=== PATIENT | female | born 1935 | race Caucasian/White ===

== ENCOUNTER 2016-12-13 10:50 | Inpatient (IN) ==
[2016-12-13 11:19] LABS: Basophils # 0.1 10*3/uL (0.0-0.2); Basophils % 0.6 % (0.0-0.8); Hematocrit 30.2 VOL% (35.7-47.0); Hemoglobin 10.2 GM/DL (12.0-16.0); Immature Granulocytes % 1.2 %; Lymphocytes # 3.9 10*3/uL (1.4-4.0); Lymphocytes % 46.4 % (21.3-54.2); Mean Corpuscular HGB Conc 33.8 GM/DL (32-36); Mean Corpuscular Hemoglobin 31 PG (27-34); Mean Corpuscular Volume 92.6 FL (87-102); Mean Platelet Volume 10.9 FL (9.6-12.0); Monocytes # 0.4 10*3/uL (0.11-0.8); Monocytes % 4.9 % (1.7-12.7); Neutrophils % 46.9 % (38.7-73.9); Platelet Count 162 T/CUMM (130-400); Red Blood Count 3.26 MC/CUMM (3.8-5.5); Red Cell Distribution Width 17.5 % (9.3-17.3); White Blood Count 8.5 T/CUMM (4-12)
--- NOTE | 2016-12-13 11:20 | Emergency Department Note ---
Candice Beth Mantricia, am scribing for, and in the presence of, Dimas Devi MD 11:12. hSandra Beth James D, MD, personally performed the services described in this documentation, ascribed by Kaiser Harvey in my presence, and it is both accurate and complete . Arrival - Arrival Chief Complaint: Allergic Reaction ED Nursing Triage Note: Brought in per EMS from [facility] with possible allergic reaction while receiving Chemo treatment. Per nursing staff patient lost pulse, requiring CPR and epi--Upon EMS arrival patient with palpable pulse. Awake with slurred speech at present, attempting to answer questions. c/o mid-sternal chest pain. Mode of Arrival: Stretcher Source: EMS, RN Notes Reviewed Time Seen by Provider: 12/13/16 10:58 - History of Present Illness HPI Narrative: Pt is an 81 y/o white female arriving to ED from [facility] for evaluation of possible allergic reaction that happened an hour [employer]. Pt is very lethargic during consultation and responds minimally. She was receiving chemo at [facility] due to her left-sided breast cancer. Dr. Hinton states that pt was given her 2nd dose of Taxotere and staff told him that she showed signs of allergic reaction; however, he did not witness any of this. EMS states that pt initially had no pulse but now has a palpable pulse. She also c/o midsternal chest pain. Pt was gagging when EMS arrived and found that she was gagging on a piece of gum. No other complaints were reported to ED. Onset (ago): hour(s) Date of Last Menstrual Period: PM Allergies/Adverse Reactions: Allergies Allergy/AdvReac Type Severity Reaction Status Date / Time No Known Allergies Allergy Verified 12/13/16 11:08 Review of System - Review of System 12 point system: reviewed and no additional remarkable complaints except as stated - Review of System Constitutional: Absent: chills, diaphoresis, fever Eyes: Absent: discharge, pain Head/Ears/Nose/Throat: Absent: earache, epistaxis Respiratory: Absent: cough, respiratory distress, wheezing Cardiovascular: Present: chest pain, dyspnea on exertion. Absent: palpitations Gastrointestinal: Absent: abdominal pain, nausea, vomiting, diarrhea Genitourinary female: Absent: abnormal menses, dysuria Exam Vital Signs: Vital Signs Temperature 97.7 F 12/13/16 10:50 Pulse Rate 109 H 12/13/16 10:50 Respiratory Rate 24 12/13/16 10:50 Blood Pressure 142/107 12/13/16 10:50 O2 Sat by Pulse Oximetry 98 12/13/16 10:50 GENERAL: This is a chronically and acutely ill-appearing white female, pale and somewhat lethargic. VITAL SIGNS: Reviewed HEENT: Head is atraumatic and normocephalic. Pupils are equal round react to light. Extraocular movements are intact. Oropharynx is benign with moist mucous membranes. NECK: Neck is soft and supple without tenderness. There are no masses. There is no lymphadenopathy. LUNGS: Lungs are clear to auscultation. Chest rises symmetrically. There is no chest wall tenderness. CV: Heart is regular rate and rhythm without murmurs rubs or gallops. ABDOMEN: Abdomen is soft, nontender to palpation. There are no abdominal abnormal masses palpated. There is no organomegaly. Bowel sounds are present and active. SKIN: Skin is warm and dry. No rash. EXTREMITIES: Patient has full range of motion without tenderness. There is no pedal edema. NEUROLOGIC: Arousable, follows commands. Cranial nerves II through XII are intact. Motor is 3 over 5 in all extremities bilaterally. Course - Reevaluation(s) Reevaluation #1: Patient is markedly improved at this time. She is much more awake, alert and talkative. Patient is oriented 4. Time: 11:46 Results - Labs CBC & BMP: 12/13/16 11:06 Lab Results: I have reviewed the patients labs - EKG EKG results: interpreted by ERMD - Impressions EKG: Normal sinus rhythm with a rate of 94, occasional supraventricular premature complexes, incomplete right bundle branch block, nonspecific ST-T wave changes. - Diagnostic Findings Procedure: Chest x-ray: image reviewed by me (Minimal increased pulmonary markings bilaterally, Mediport present with tip in the superior vena cava.), CT : image reviewed by me (CT head: No acute intracranial lesion or hemorrhage.) Disposition Clinical Impression: Allergic reaction to Taxotere, Metastatic breast cancer Case discussed with: patient, patient's family Disposition: Still a Patient Condition: Guarded
[2016-12-13 11:28] LABS: Apearance,Urine CLOUDY (Clear); Bacteria,Urine Moderate /HPF (Few); Bilirubin,Urine Negative (Negative); Blood, Urine Negative (Negative); Glucose,Urine (UA) Negative (Negative); Ketones,Urine Negative (Negative); Mucus,Urine Many /LPF (Occasional); Nitrite,Urine Negative (Negative); Protein,Urine 100 MG/DL; RBC,Urine 7 /HPF (0-4); Squamous Epithelial Cell,Urine Occasional /HPF (0-10); Urine Color Yellow (Yellow); Urine Specific Gravity 1.014 (1.001-1.035); WBC,Urine 842 /HPF (0-6)
--- NOTE | 2016-12-13 11:28 | XRay Report ---
XR chest 1V portable Indication: Altered mental status Comparison: None Technique: Single frontal view of the chest. Findings: Moderate cardiomegaly. Port catheter tip projects over distal SVC. Prominence of bilateral interstitial lung markings is nonspecific but suspicious for interstitial pulmonary edema. Scattered small pulmonary opacities are also suspicious for pulmonary edema. Underlying infection not excluded. Suspect small layering bilateral pleural fluid. Small subcentimeter nodular densities noted within the upper lungs bilaterally. Consider CT chest for further evaluation. Diffuse osteopenia. Left axillary clips. IMPRESSION: As above. PROCEDURE INTERPRETED AT [facility] DEPARTMENT OF RADIOLOGY Final Report Signed by: Dr Monico Rushing
[2016-12-13 11:30] LABS: INR 1.1; PT Patient Result 11.7 SECS; Partial Thromboplastin Time 25.8 SECS (0-40)
--- NOTE | 2016-12-13 11:39 | CT Report ---
Referring physician: Dimas Devi Exam: CT brain without contrast Date: December 13, 2016 Comparison: None Reason: Mental status changes The patient is an Emergency Department patient on December 13, 2016. Technique: Axial images of the head were obtained without the use of contrast. Total DLP was 1012.1 mGy*cm. Findings: There is mild generalized cerebral and cerebellar atrophy/volume loss. No hydrocephalus or midline shift is present. There is no evidence of recent intracranial hemorrhage, abnormal mass effect or an acute infarction. No acute osseous process is seen. The visualized paranasal sinuses and left mastoid air cells are clear. There is mild fluid within the right mastoid air cells. Impression: 1. No acute intracranial process is identified. 2. Mild fluid within the right mastoid air cells. The CT exam was performed using one or more of the following dose reduction techniques: Automated exposure control and adjustment of the mA and/or kV according to patient size. PROCEDURE INTERPRETED AT [facility] DEPARTMENT OF RADIOLOGY Final Report Signed by: Dr. Reynaldo Shukla
[2016-12-13 11:55] LABS: Albumin 3.5 G/DL (3.4-5.0); Bilirubin,Total 0.8 MG/DL (0.2-1.0); Calcium 8.7 MG/DL (8.5-10.1); Osmolality,Calculated 283.5 MOS/KG (273-304); Potassium 3.3 MMOL/L (3.5-5.1); Total Protein 6.3 G/DL (6.4-8.3); Troponin I Only 0.161 NG/ML (0.00-0.045)
[2016-12-13] MEDS ORDERED: chlorproMAZINE INJ 50 MG in SODIUM CHLORIDE 0.9% 100 ML IV PRN (14:26)
[2016-12-13] MEDS ORDERED: BENZTROPINE 2 MG/2 ML AMP IV PRN (14:26)
[2016-12-13] MEDS ORDERED: ALPRAZolam 0.25 MG TABLET PO PRN (14:26)
[2016-12-13] MEDS ORDERED: chlorproMAZINE INJ 25 MG in SODIUM CHLORIDE 0.9% 100 ML IV PRN (14:26)
[2016-12-13] MEDS ORDERED: diphenhydrAMINE CAP 25 MG CAPSULE PO PRN (14:26)
[2016-12-13] MEDS ORDERED: TEMAZEPAM 7.5 MG CAPSULE PO PRN (14:26)
[2016-12-13] MEDS ORDERED: ACETAMINOPHEN 325 MG TABLET PO PRN (14:26)
[2016-12-13] MEDS ORDERED: MYLANTA/LIDO VISC 2:1 300 ML BOTTLE SWISH/SWAL PRN (14:26)
[2016-12-13] MEDS ORDERED: ONDANSETRON 4 MG/2 ML VIAL IV PRN (14:26)
[2016-12-13] MEDS ORDERED: ALUMINUM/MAGNES/SIMETH MAX STR 30 ML UDCUP PO PRN (14:26)
[2016-12-13] MEDS ORDERED: MAGNESIUM HYDROXIDE SUSP 30 ML UDCUP PO PRN (14:26)
[2016-12-13] MEDS ORDERED: MYLANTA/LIDO VISC 2:1 300 ML BOTTLE SWISH/SPIT PRN (14:26)
[2016-12-13] MEDS ORDERED: traMADol 50 MG TABLET PO PRN (14:26)
[2016-12-13] MEDS ORDERED: guaiFENesin 200 MG/10 ML UDCUP PO PRN (14:26)
[2016-12-13] MEDS ORDERED: LACTULOSE 20 GM/30 ML UDCUP PO PRN (14:26)
[2016-12-13] MEDS ORDERED: chlorproMAZINE 25 MG TABLET PO PRN (14:26)
[2016-12-13] MEDS ORDERED: LOPERAMIDE 2 MG CAPSULE PO PRN ×2 (14:26)
[2016-12-13] MEDS ORDERED: PROMETHAZINE INJ 25 MG in SODIUM CHLORIDE 0.9% 50 ML IV PRN (14:26)
--- NOTE | 2016-12-14 04:44 | EKG Report ---
Stationary ECG Study [facility] ER Test Date: 12/13/2016 10:57:34 AM Pat Name: INDERJIT URBINA Department: Room: Gender: F Operations Manager: : 1935 Requested by: Dimas Hayes Order Number: [id number] Reading MD: TEETEE GARCIA Intervals [place] Rate: 94 P: 67 MT: 199 QRS: -14 QRSD: 103 T: 81 QT: 392 QTc: 444 Interpretive Statements SINUS RHYTHM WITH OCCASIONAL SUPRAVENTRICULAR PREMATURE COMPLEXES INCOMPLETE RIGHT BUNDLE BRANCH BLOCK Electronically Signed On 12-13-16 17:10:45 CDT by TEETEE GARCIA [email or web address]
--- NOTE | 2016-12-14 08:41 | Oncology History&Physical ---
Assessment and Plan (1) Metastatic breast cancer Status: Acute Assessment and plan: The patient will be discharged today. She will return to the office on Sunday for alternative chemotherapy. She appears to have urinary tract infection with culture results pending. She is prescribed Cipro 250 mg p.o. twice daily for 10 days. We are also supplementing potassium. A stat magnesium is pending at this time. Current Visit: Yes History of Present Illness Chief complaint: Anaphylactic reaction History of present illness: Ms. Morrow is a 81 year old female With minimum stage III breast cancer. The patient was at the office yesterday for third cycle of chemotherapy. She had just began docetaxel chemotherapy. To become unconscious. She was given 1 round of epinephrine and a limited course of CPR. She was lethargic and was transferred via ambulance to [facility] s ER. She was hypotensive at that time but did have a thready pulse. Other supportive medicines including Benadryl and Pepcid were administered. She responded to conservative treatment and did not require intubation. A CT of the head was negative. An EKG appeared unremarkable. This morning she is in her usual state of health with no apparent ill effects Home Medications Medication Instructions Recorded Confirmed Type Bisoprolol/Hctz 10-6.25 [Ziac 1 tablet PO DAILY 12/13/16 12/13/16 History 10-6.25] Ubidecarenone [Co Q-10] 2 capsule PO DAILY 12/13/16 12/13/16 History Allergies Allergy/AdvReac Type Severity Reaction Status Date / Time docetaxel [From Taxotere] Allergy Verified 12/13/16 14:57 Medical,Surgical,& Family Hx - Medical History Cardio: History of: Hypertension Reproductive: History of: Breast Cancer (with mets) - Surgical History Abdominal Surgeries: Surgical HX of: Appendectomy Reproductive Surgeries: Surgical HX of;: Breast Surgery (left mastectomy), Hysterectomy - Family History Family History: Reports;: Family Cancer (sister), Family Diabetes (brother), Family Hypertension (brother, father, mother) - Social History Smoking Status: Never smoker Frequency of Alcohol Use: None Type of Drug Use: None - Constitutional Constitutional: Absent: fever(s) - EENT Eye: Absent: blurry vision Nose, mouth and throat: Absent: epistaxis - Cardiovascular Cardiovascular ROS IM: Absent: palpitations - Respiratory Respiratory: Absent: dyspnea, hemoptysis - Gastrointestinal Gastrointestinal: Absent: diarrhea - Genitourinary Genitourinary ROS female: Absent: hematuria - Neurological Neurological ROS: Absent: abnormal speech, behavioral changes - Psychiatric Psychiatric General: Absent: anxiety, confusion Exam - Constitutional Vitals: Period Temp Pulse Resp BP Sys/Dsouza Pulse Ox Last 24 Hr 96.7 F-98.1 F 53-109 16-25 102-151/52-107 90-99 General appearance: no acute distress, over weight - Head Head Exam: Present: normal inspection, normocephalic - Eye Eye Exam: Present: EOMI. Absent: conjunctival injection, periorbital swelling, scleral icterus Pupils: Present: PERRL, normal accommodation - ENT ENT exam: Present: normal external ear exam - Neck Neck exam: Present: normal inspection. Absent: lymphadenopathy - Respiratory Respiratory exam: Present: CTAB. Absent: accessory muscle use, chest wall tenderness - Cardiovascular Cardiovascular exam: Present: RRR. Absent: systolic murmur, tachycardia - GI/Abdominal GI/Abdominal exam: Absent: ascites, distended, firm, guarding Results - Labs CBC & BMP: 12/13/16 11:06 12/13/16 11:06
[2016-12-14] MEDS ORDERED: POTASSIUM CHLORIDE 8 MEQ CAPSULE PO SCH (09:00)
[2016-12-14] MEDS ORDERED: COENZYME Q10 100 MG CAPSULE PO SCH (09:00)
[2016-12-14] MEDS ORDERED: BISOPROLOL/HCTZ 10-6.25 MG TABLET PO SCH (09:00)
[2016-12-14] MEDS ORDERED: MAGNESIUM SULF RIDER 2 GM in PREMIX 1 EACH IV ONE (10:11)
--- NOTE | 2016-12-14 10:54 | XRay Report ---
History: Post-CPR Date: 12/14/2016 Study: Chest x-ray AP portable Comparison exam: 12/13/2016 The right subclavian Mediport catheter is well-positioned. There is cardiomegaly. The pulmonary vasculature is borderline to minimally prominent. The mediastinal contours are similar. There is some minor hazy density in the mid to lower lungs which could represent some residual pulmonary edema, the same or minimally increased. There is probable mild bilateral pleural effusion. Osseous structures are unchanged. Impression: Cardiomegaly. Continued pulmonary edema, the same or minimally increased PROCEDURE INTERPRETED AT [facility] DEPARTMENT OF RADIOLOGY Final Report Signed by: Dr. Audrey Lynne
[2016-12-14] MEDS ORDERED: HEPARIN LOCK FLUSH 500 UNIT/5 ML SYRINGE IV ONE (11:22)
[2016-12-14 11:58] VITALS: BP 124/60
== END 2016-12-14 12:15 | disposition home or self-care (01) | DRG 916 ==
LOC: N.ED 10:50 → N.EDINP 11:46 → N.4E 13:13
PROVIDERS: ADMIT Specialist; ATTEND Specialist